=== PATIENT | male | born 1985 | race Caucasian/White ===

== ENCOUNTER 2024-12-04 06:26 | Emergency (ER) | payer MEDICAID, OTHER ==
[~2024-12-04] VITALS: Ht 172.7 cm; Wt 74.0 kg
[~2024-12-04 06:26] MED LIST: ASCO500T20 PO; FERR-63 PO; HYDR-4001 PO; LEVO750T68 PO; METO10TA3 PO; METR-167 PO; PREG50CA PO; TOPUD PO
[2024-12-04 06:31] VITALS: O2SAT 97
[2024-12-04] MEDS: VANCOMYCIN 1G PREMIX 200 ML IV ONE (08:25)
[2024-12-04] MEDS: SODIUM CHLORIDE 0.9% (SEPSIS BOLUS) IV ONE (08:30)
[2024-12-04 09:01] LABS: BASOPHILS % 0.4 % (0.0-2.0); EOSINOPHILS % 7.3 % (0.0-5.0); HEMATOCRIT. 40.5 % (42.0-52.0); HEMOGLOBIN. 13.6 g/dL (14.0-18.0); MEAN CORPUSCULAR HEMOGLOBIN 29.8 pg (28.0-32.0); MEAN CORPUSCULAR HGB CONC 33.5 g/dL (31.0-37.0); MEAN CORPUSCULAR VOLUME 88.8 fL (80.0-94.0); MEAN PLATELET VOLUME 8.1 fl (7.4-10.4); MONOCYTES % 11.8 % (2.0-8.0); NEUTROPHILS % 60.5 % (40.0-76.0); PLATELET 255 x1000/uL (130-400); RED BLOOD CELL COUNT 4.56 mill/uL (4.7-6.1); RED CELL DISTRIBUTION WIDTH 13.4 % (11.6-14.6)
[2024-12-04 09:08] LABS: CHLORIDE 106 mEq/L (98-107); POTASSIUM 3.8 mEq/L (3.5-5.1); SODIUM 139 mEq/L (136-145)
[2024-12-04 09:12] LABS: CALCIUM 9.3 mg/dL (8.7-10.4); CARBON DIOXIDE 25 mEq/L (21-32)
[2024-12-04 09:15] LABS: CREATININE 0.6 mg/dL (0.6-1.3)
[2024-12-04 09:17] LABS: GLUCOSE 91 mg/dL (70-105); UREA NITROGEN BLOOD 11 mg/dL (9-23)
[2024-12-04] MEDS: PIPERACILLIN/TAZO 3.375G/50ML 50 ML IV ONE (09:58)
[2024-12-04] MEDS: ONDANSETRON HCL 4MG/2ML INJ IV STA (10:03)
[2024-12-04] MEDS: MORPHINE SULFATE 4 MG/ML INJ (FOR IV/IM USE) IV STA (10:04)
[2024-12-04] MEDS: IOHEXOL-300 100 ML BOTTLE ONE (12:16)
[2024-12-04] MEDS ORDERED: CEPH500C2 MT (14:05)
[2024-12-04] MEDS ORDERED: SULF1TAB48 MT (14:05)
[2024-12-04 14:16] VITALS: BP 140/87; PULSE 95; RESP 17; TEMP 36.6; O2SAT 97
== END 2024-12-04 14:25 | disposition home or self-care (01) ==
LOC: ER 06:34 → EDBEDREQ 13:44 → ER 14:25
DX: L02.211 Cutaneous abscess of abdominal wall (principal); J45.909 Unspecified asthma, uncomplicated; Z79.899 Other long term (current) drug therapy; Z93.3 Colostomy status
CPT/HCPCS: 80048; 83605; 83690; 85025; 87040; 87086; 36415; 84145; 71045; 74177; 93005; 10061; 96368; 96365; 96366; 96375; 99291; Q9967; J2405; J2543; J3370; J2270; J7030; Z7610